=== PATIENT | male | born 1995 ===

== ENCOUNTER 2019-10-14 17:24 | Emergency (ER) | payer SELFPAY ==
[2019-10-14 17:45] VITALS: BP 135/84; PULSE 61; RESP 18; TEMP 37.2; O2SAT 100; BMI 27.4
--- NOTE | 2019-10-14 18:36 | ED_ITS ---
HPI - Abdominal Pain General: Chief Complaint: Abdominal Pain Stated Complaint: apd/back pain Time Seen by Provider: 10/14/19 18:36 Source: patient Mode of arrival: ambulatory Limitations: no limitations History of Present Illness: HPI narrative: 23-year-old male comes in today with complaints of abdominal pain and right flank pain. Patient appears well. Patient appears in mild pain. Patient reports history of irritable bowel syndrome. Patient reports that pain symptoms have been going on for about 2 days now. Patient reports irregular bowel habits from constipation to diarrhea. Review of Systems General: Reports: 10 or more systems reviewed and unremarkable except in HPI and below : Reports: flank pain Physical Exam Const: COMMON NORMALS: no acute distress and patient oriented x3 GENERAL APPEARANCE: cooperative HENMT: COMMON NORMALS: normocephalic and Normal external nose present HEAD & SCALP: normal to inspection and normocephalic NOSE: Normal external nose present MOUTH: Normal oral and palatal mucosa present THROAT: posterior oropharynx normal Eye: GENERAL EYE: appearance normal, both eyes and all related structures Neck/C-Spine: COMMON NORMALS: full ROM Lymph: LYMPHATIC: no lymphadenopathy noted Chest: COMMONS NORMALS: normal inspection of the chest Resp: COMMON NORMALS: normal respiratory effort EFFORT & INSPECTION: Yes able to speak in complete sentences Cardio: COMMON NORMALS: regular rate and regular rhythm RATE: regular rate RHYTHM: regular rhythm GI: COMMON NORMALS: non-tender : COMMON NORMALS: Yes no CVA tenderness BLADDER/KIDNEY EXAM: Yes no CVA tenderness Back/Pelvis: COMMON NORMALS: no CVA tenderness and thoracic and lumbar spine normal to inspection Extremity: COMMON NORMALS: normal to inspection Neuro: COMMON NORMALS: patient oriented x3 and moves all extremities Psych: COMMON NORMALS: mental status grossly normal and cooperative Skin: COMMON NORMALS: no rashes or lesions noted GENERAL SKIN EXAM: no rashes or lesions noted Course Vital Signs: Vital signs: Vital Signs Temperature 98.9 F 10/14/19 17:45 Pulse Rate 60 10/14/19 22:18 Respiratory Rate 18 10/14/19 22:18 Blood Pressure 147/85 10/14/19 22:18 Pulse Oximetry 97 10/14/19 22:18 MDM - Abdominal Pain MDM Narrative: Medical decision making narrative: Patient comes in with right flank pain radiating into the abdomen. Patient reports he has been ill for about 2 to 3 days. Patient appears well. Abdomen is soft with some tenderness in the right side. Patient also had some flank tenderness on percussion. Respirations are even lungs are clear to auscultation. Differential diagnosis included but not limited to appendicitis, renal colic, muscle strain. CBC and CMP were normal. Urinalysis did show some red blood cells. CT scan of the abdomen pelvis was done for concern of renal colic no renal colic was noted but it was seen that patient had mesenteric adenitis. Acute abdomen x-ray was done it was negative for any abnormality. Reviewed exam with patient and recommendations for follow-up or need to return to the ER. Patient reported understanding agreed to plan. Lab Data: Labs: Lab Results 10/14/19 10/14/19 10/14/19 Range/Units 18:53 18:53 18:53 WBC 7.8 (4.0-10.0) 10^3/ uL RBC 5.05 (4.1-5.3) 10^6/u L Hgb 13.7 (11.7-16.6) g/dL Hct 43.3 (42.0-52.0) % MCV 85.7 (80-94) fL MCH 27.1 L (28.0-34.0) pg MCHC 31.6 (30.0-36.0) g/dL RDW 12.4 (12.1-15.1) % Plt Count 240 (130-400) 10^3/c mm MPV 9.9 (7.4-10.4) fL Neut % (Auto) 73.4 % Lymph % (Auto) 16.5 % Castro % (Auto) 8.5 % Eos % (Auto) 0.9 % Baso % (Auto) 0.4 % Neut # (Auto) 5.71 (1.8-7.7) 10^3/u L Lymph # (Auto) 1.3 (0.8-4.8) 10^3/u L Castro # (Auto) 0.7 (0.2-0.9) 10^3/u L Eos # (Auto) 0.1 (0.0-0.8) 10^3/u L Baso # (Auto) 0.0 (0.0-0.1) 10^3/u L Nucleated RBC % (a uto) 0 % Nucleated RBCs # 0.0 /100WBC Sodium 140 (136-145) mmol/L Potassium 3.6 (3.5-5.1) mmol/L Chloride 101 (98-107) mmol/L Carbon Dioxide 27 (22-29) mmol/L Anion Gap 15.6 (5-19) BUN 10 (6-20) mg/dL Creatinine 1.0 (0.7-1.2) mg/dL GFR Calculation 91.8 (90-130) mL/min Glucose 95 (65-115) mg/dL Calculated Osmolal ity 286 (285-295) mOsm/k g Calcium 9.5 (8.5-10.5) mg/dL Total Bilirubin 0.7 (0.15-1.2) mg/dL AST 19 (0-40) U/L ALT 12 (0-41) U/L Alkaline Phosphata se 95 (40-130) IU/L Total Protein 7.8 (6.6-8.7) g/dL Albumin 5.0 (3.5-5.2) g/dL Globulin 2.8 (1.3-4.6) g/dL Lipase 17 (13-60) U/L Urine Color Yellow (Yellow) Urine Appearance Clear (CLEAR) Urine pH 5 (5-7) Ur Specific Gravit y 1.015 (1.005-1.030) Urine Protein Neg (Negative) Urine Glucose (UA) Norm (Normal) Urine Ketones Negative (Negative) Urine Blood 2+ H (Negative) Urine Nitrate Negative (Negative) Urine Bilirubin Neg (NEGATIVE) Urine Urobilinogen Neg (Negative) mg/dL Ur Leukocyte Mcehe ase Negative (Negative) Urine RBC 0-4 H (0-2) /hpf Urine WBC None (0-5) /hpf Ur Squamous Epith Cells None (0-5) Urine Bacteria Trace (NONE) Discharge Plan Discharge Patient Disposition: Home, Self-Care Clinical Impression: Acute mesenteric adenitis Condition: Stable Prescriptions: New ibuprofen 600 mg tablet 600 mg PO Q6H PRN (Reason: pain) Qty: 60 RF: 0 Discharge Orders: Discharge Order (Routine); Ordered 10/14/19 Ordered By: Ministerio Vidal Discharge Diet: Usual diet Discharge Activity: Increase activity as tolerated Activity Restrictions/Additional Instructions: Home and rest. Drink plenty of water. Take acetaminophen or ibuprofen as needed for pain. Mesenteric adenitis usually resolves within 6 to 8 weeks. Usually the symptoms up to the first 2 to 3 weeks shanon quite a bit. There is no treatment except for acetaminophen and ibuprofen. Most often is secondary to a viral infection. Follow-up with primary care as needed. Return to the ER for new symptoms such as fever greater than 100.4 or other concerns. Stand Alone Forms: Work/School Release Discharge Date/Time: 10/14/19 22:18 Coding Level of Care Code ED Lead Medical Technologist for Chg Fwd Exam Comprehensive
--- NOTE | 2019-10-14 18:44 | XRR_ITS ---
PROCEDURE INFORMATION: Exam: XR Abdomen, 2 Views Exam date and time: 10/14/2019 7:09 PM Age: 23 years old Clinical indication: Abdominal pain; Additional info: Abd pain, constipation TECHNIQUE: Imaging protocol: XR of the abdomen. Views: 2 Views. COMPARISON: No relevant prior studies available. FINDINGS: Heart/Mediastinum: Heart is within normal limits of size. Lungs: Lungs are clear. Gastrointestinal tract: Normal. No bowel dilation. Intraperitoneal space: Normal. No free air. Bones/joints: Unremarkable for age. XR/XR acute abdomen series [id number] IMPRESSION: No acute findings.
[2019-10-14 18:56] VITALS: BP 142/67; PULSE 71; RESP 16; O2SAT 100
[2019-10-14 19:00] LABS: Basophils % 0.4 %; Eosinophils # 0.1 10^3/uL (0.0-0.8); Eosinophils % 0.9 %; Hematocrit 43.3 % (42.0-52.0); Hemoglobin 13.7 g/dL (11.7-16.6); Lymphocytes # 1.3 10^3/uL (0.8-4.8); Lymphocytes % 16.5 %; Mean Corpuscular HGB Conc 31.6 g/dL (30.0-36.0); Mean Corpuscular Hemoglobin 27.1 pg (28.0-34.0); Mean Corpuscular Volume 85.7 fL (80-94); Mean Platelet Volume 9.9 fL (7.4-10.4); Monocytes # 0.7 10^3/uL (0.2-0.9); Monocytes % 8.5 %; Neutrophils # 5.71 10^3/uL (1.8-7.7); Neutrophils % 73.4 %; Nucleated Red Blood Cells % 0 %; Platelet Count 240 10^3/cmm (130-400); Red Blood Count 5.05 10^6/uL (4.1-5.3); Red Cell Distribution Width 12.4 % (12.1-15.1); White Blood Count 7.8 10^3/uL (4.0-10.0)
[2019-10-14 19:18] LABS: Alanine Aminotransferase 12 U/L (0-41); Alkaline Phosphatase 95 IU/L (40-130); Anion Gap 15.6 (5-19); Aspartate Amino Transferase 19 U/L (0-40); Blood Urea Nitrogen 10 mg/dL (6-20); Calcium 9.5 mg/dL (8.5-10.5); Carbon Dioxide 27 mmol/L (22-29); Chloride 101 mmol/L (98-107); Creatinine Clr Calc Pharmacy 111.3671; Globulin 2.8 g/dL (1.3-4.6); Glomerular Filtration Rate 91.8 mL/min (90-130); Glucose 95 mg/dL (65-115); Lipase 17 U/L (13-60); Osmolality Calculated 286 mOsm/kg (285-295); Potassium 3.6 mmol/L (3.5-5.1); Sodium 140 mmol/L (136-145); Total Bilirubin 0.7 mg/dL (0.15-1.2); Total Protein 7.8 g/dL (6.6-8.7)
[2019-10-14 19:26] LABS: Bilirubin Urine Neg (NEGATIVE); Blood Urine 2+ (Negative); Glucose Urine UA Norm (Normal); Ketones Urine Negative (Negative); Leukocyte Esterase Urine Negative (Negative); Nitrate Urine Negative (Negative); Protein Urine Neg (Negative); Specific Gravity, Urine 1.015 (1.005-1.030); Urine Appearance Clear (CLEAR); Urine Color Yellow (Yellow); Urobilinogen Urine Neg (Negative); pH Urine 5 (5-7)
[2019-10-14 19:27] LABS: Add Urine Culture? No; Bacteria Urine TRACE; RBC Urine 0-4 /hpf (0-2)
--- NOTE | 2019-10-14 19:37 | CTR_ITS ---
PROCEDURE INFORMATION: Exam: CT Abdomen And Pelvis Without Contrast Exam date and time: 10/14/2019 8:09 PM Age: 23 years old Clinical indication: Abdominal pain; Additional info: Hematuria, right flank pain TECHNIQUE: Imaging protocol: Computed tomography of the abdomen and pelvis without contrast. Radiation optimization: All CT scans at this facility use at least one of these dose optimization techniques: automated exposure control; mA and/or kV adjustment per patient size (includes targeted exams where dose is matched to clinical indication); or iterative reconstruction. COMPARISON: CR XR acute abdomen series [id number] 10/14/2019 6:54 PM RADIATION DOSE METRICS: Total DLP (mGy-cm): 1349.39 FINDINGS: Limitations: The absence of intravenous contrast lessens the sensitivity of this study for solid organ abnormalities. Liver: There is no focal abnormality within the liver. Gallbladder and bile ducts: Normal. No calcified stones. No ductal dilation. Pancreas: The pancreas is normal. Spleen: The spleen is normal. Adrenals: The adrenal glands are normal. Kidneys and ureters: The kidneys are normal. There is no evidence of hydronephrosis. There is no evidence of renal or ureteral calcifications. Stomach and bowel: There is no evidence of colitis/diverticulitis. Appendix: A normal appendix is identified. Intraperitoneal space: Unremarkable. No free air. No significant fluid collection. Vasculature: Unremarkable. No abdominal aortic aneurysm. Lymph nodes: There are prominent mesenteric lymph nodes in the right lower quadrant which could represent some mesenteric adenitis. Correlation with clinical findings is suggested. Bladder: There is mild thickening of the urinary bladder wall which could represent cystitis. Correlation with clinical findings is suggested. Reproductive: Unremarkable as visualized. Bones/joints: Unremarkable. No acute fracture. Soft tissues: Unremarkable. CT/CT kidney stone [id number] IMPRESSION: 1. Possible cystitis. 2. Enlarged mesenteric lymph nodes suggesting possible mesenteric adenitis. Radiation Dose CTDIVOL = (mGy): DLP = 1349.39 (mGy-cm)
[2019-10-14] MEDS: ketorolac 30 mg/mL INJ IM (19:49)
[2019-10-14 19:51] VITALS: BP 141/77; PULSE 69; RESP 16; O2SAT 91
[2019-10-14 22:18] VITALS: BP 147/85; PULSE 60; RESP 18; O2SAT 97
== END 2019-10-14 22:18 | disposition home or self-care (01) ==
PROVIDERS: Emergency Medicine; Emergency Provider Nurse Practitioner Family
DX: I88.0 Nonspecific mesenteric lymphadenitis (principal)
CPT/HCPCS: 12345; 74022; 74176; 80053; 81001; 83690; 85025; 96372; 99282; 99283; J1885